=== PATIENT | male | born 2000 | race Caucasian/White ===

== ENCOUNTER 2022-08-03 15:11 | Emergency (ER) | payer OTHER ==
[~2022-08-03] VITALS: Ht 172.7 cm; Wt 74.8 kg
[2022-08-03 15:17] VITALS: BP 134/81
--- NOTE | 2022-08-03 15:21 | NUR ---
21/M WALKED IN C/O FORESKIN SWELLING AND PAIN ONSET 4 DAYS. PT REPOTS SEXUALLY ACTIVE. PT SUSPECTS INFECTION AFTER USING A SOILED EBBS-A-SFNIM 5 DAYS AGO AND TOUCHED THE RIM OF TOILET WITH PENIS. DENIES FEVER. AFEBRILE AT TRIAGE. DENIES DYSURIA OR HEMATURIA. AAO4, AMBULATORY. PMH: ASTHMA
[2022-08-03] MEDS ORDERED: NYST15CR10 TP (16:13)
[2022-08-03] MEDS ORDERED: BACTO TP (16:13)
== END 2022-08-03 16:45 | disposition home or self-care (01) ==
LOC: MED 15:11
DX: N47.6 Balanoposthitis (principal); J45.909 Unspecified asthma, uncomplicated; Z79.899 Other long term (current) drug therapy; Z79.2 Long term (current) use of antibiotics
CPT/HCPCS: 82948; 99282

== ENCOUNTER 2022-08-09 16:33 | Emergency (ER) | payer OTHER ==
[~2022-08-09] VITALS: Ht 170.2 cm; Wt 68.0 kg
[~2022-08-09 16:33] MED LIST: BACTO TP; NYST15CR10 TP
[2022-08-09 17:12] VITALS: BP 120/62
[2022-08-09 19:26] VITALS: BP 120/62
--- NOTE | 2022-08-09 19:26 | NUR ---
PT LEFT WITHOUT PAPER WORK. Patient discharged with v/s stable. Written and verbal after care instructions given and explained. Patient verbalized understanding. Ambulatory with steady gait. All questions addressed prior to discharge. Advised to follow up with PMD.
--- NOTE | 2022-08-09 19:30 | NUR ---
1925 PER ADMITTING; PATIENT ELOPED.
== END 2022-08-09 19:26 | disposition home or self-care (01) ==
LOC: MED 16:33
DX: N47.6 Balanoposthitis (principal); J45.909 Unspecified asthma, uncomplicated; Z79.899 Other long term (current) drug therapy
CPT/HCPCS: 81002; 99281; 99282